=== PATIENT | male | born 1965 | race Caucasian/White ===

== ENCOUNTER 2018-04-29 09:18 | Day surgery (SDC) | payer BC ==
[2018-04-29] MEDS ORDERED: PROPOFOL 20 ML (10:22)
== END 2018-04-29 15:21 | disposition home or self-care (01) ==
LOC: GIL 09:18
DX: Z12.11 Encounter for screening for malignant neoplasm of colon (principal); K64.8 Other hemorrhoids
CPT/HCPCS: 45378